=== PATIENT | female | born 1960 | race Caucasian/White ===

== ENCOUNTER → 2017-09-04 | Outpatient (CLI) | payer OTHER | END | disposition home or self-care (01) | LOC: EEG 10:04 | DX: G40.909 Epilepsy, unspecified, not intractable, without status epilepticus (principal) | CPT/HCPCS: 95819 ==

== ENCOUNTER 2018-12-23 07:18 | Inpatient (IN) | payer OTHER ==
[2018-12-23] MEDS: ACETAMINOPHEN 500 MG TAB PO (06:30)
[2018-12-23] MEDS: LACTATED RINGER'S 1,000 ML IV ×2 (06:30→14:30)
[2018-12-23] MEDS: CEFAZOLIN 1 GM/50 ML (PMX) 50 ML IVPB (06:30)
[2018-12-23] MEDS: ACETAMINOPHEN 1000MG/100ML IV 100 ML IVPB (08:01)
[2018-12-23] MEDS: LANSOPRAZOLE 30 MG CAP PO (08:02)
[2018-12-23] MEDS: DEXAMETHASONE 4 MG/ML 1 ML INJ IV (08:02)
[2018-12-23] MEDS: oxyCODONE (CR) 10 MG TAB [oxyCONTIN] PO (08:02)
[2018-12-23] MEDS: ONDANSETRON 4 MG INJ IV ×3 (08:02→18:23)
[2018-12-23] MEDS ORDERED: ONDANSETRON 4 MG INJ (08:38)
[2018-12-23] MEDS ORDERED: PROPOFOL 20 ML (08:38)
[2018-12-23] MEDS ORDERED: DEXAMETHASONE 4 MG/ML 5 ML INJ (08:38)
[2018-12-23] MEDS ORDERED: GLYCOPYRROLATE 0.4 MG INJ (08:38)
[2018-12-23] MEDS ORDERED: morphine SULFATE/PF (10 MG/10 ML) INJ (08:38)
[2018-12-23] MEDS ORDERED: ROCURONIUM 50 MG INJ (08:38)
[2018-12-23] MEDS ORDERED: NEOSTIGMINE 3 MG/3 ML SYRINGE (08:38)
[2018-12-23] MEDS ORDERED: CEFAZOLIN 1 GM INJ (08:38)
[2018-12-23] MEDS ORDERED: FENTAnyl 50 MCG/ML VIAL (08:38)
[2018-12-23] MEDS ORDERED: ROPIVACAINE 0.5 % 30 ML VIAL ×2 (08:38→12:43)
[2018-12-23] MEDS ORDERED: MIDAZOLAM 1 MG/ML 2 ML INJ (08:38)
[2018-12-23] MEDS: TRANEXAMIC ACID 1GM/100ML(PMX) 100 ML INTRA-OP X1 IVPB ×2 (10:43→11:51)
[2018-12-23] MEDS: BACITRACIN 50000 UNITS INJ (11:25)
[2018-12-23] MEDS: POLYMYXIN B 500000 UNIT INJ (11:25)
[2018-12-23] MEDS: ROPIVACAINE INJ (11:26)
[2018-12-23] MEDS: MORPHINE SULFATE INJ (11:26)
[2018-12-23] MEDS: CLONIDINE INJ (11:26)
[2018-12-23] MEDS: [UNRECOGNIZED DRUG - OTHER] INJ (11:26)
[2018-12-23] MEDS ORDERED: HYDROmorphONE 1 MG/5 ML IV SYRINGE IV ×3 (11:30)
[2018-12-23] MEDS ORDERED: OXYCODONE/ACETAMINOPHEN (5/325) TAB PO ×2 (11:30)
[2018-12-23] MEDS ORDERED: NALBUPHINE HCL (10 MG/1 ML) INJ IV (11:30)
[2018-12-23] MEDS ORDERED: MEPERIDINE 25 MG INJ IV (11:30)
[2018-12-23] MEDS ORDERED: hydrALAzine 20 MG INJ IV (11:30)
[2018-12-23] MEDS ORDERED: IPRATROPIUM (NEB) 0.5 MG/2.5 ML AMP HHN (11:30)
[2018-12-23] MEDS ORDERED: NALOXONE (0.4 MG/ML) INJ IV ×2 (11:30→12:30)
[2018-12-23] MEDS ORDERED: DIPHENHYDRAMINE 50 MG INJ IV ×2 (11:30)
[2018-12-23] MEDS ORDERED: HYDROmorphONE 0.5 MG/0.5 ML SYG IV (11:30)
[2018-12-23] MEDS ORDERED: ONDANSETRON 4 MG INJ IV ×2 (11:30)
[2018-12-23] MEDS ORDERED: ALBUTEROL 0.083% (NEB) 2.5 MG/3 ML AMP HHN (11:30)
[2018-12-23] MEDS ORDERED: EPHEDrine 25 MG/5 ML SYG IV (11:30)
[2018-12-23] MEDS ORDERED: MIDAZOLAM 1 MG/ML 2 ML INJ IV (11:30)
[2018-12-23] MEDS ORDERED: ZOLPIDEM 5 MG TAB PO (11:30)
[2018-12-23] MEDS ORDERED: LABETALOL HCL 20MG INJ IV (11:30)
[2018-12-23] MEDS ORDERED: FENTAnyl 50 MCG/ML VIAL IV ×3 (11:30)
[2018-12-23] MEDS ORDERED: TRIMETHOBENZAMIDE 100 MG/ML VIAL IM ×2 (11:30)
[2018-12-23] MEDS: TRANEXAMIC ACID 1GM/100ML(PMX) 100 ML PRE-OP X1 IVPB ×2 (11:52→12:19)
[2018-12-23] MEDS ORDERED: NACL 0.9% 3 ML SYG IV (12:30)
[2018-12-23] MEDS ORDERED: SENNA/DOCUSATE NA (8.6MG/50MG) TAB PO (12:30)
[2018-12-23] MEDS ORDERED: SUGAMMADEX SODIUM 200 MG/2 ML VIAL IV (12:35)
[2018-12-23] MEDS: GABAPENTIN 100 MG CAP PO ×2 (13:00→21:56)
[2018-12-23] MEDS: CEFAZOLIN 2 GM/50 ML (PMX) 50 ML IVPB ×2 (13:31→21:57)
[2018-12-23] MEDS: ASPIRIN 81 MG TAB PO (13:34)
[2018-12-23] MEDS ORDERED: LIDOCAINE 2% (SDV) 5 ML INJ IV (14:29)
[2018-12-23] MEDS ORDERED: LORAZEPAM 2 MG INJ IV (15:00)
[2018-12-23] MEDS: KETOROLAC 15 MG INJ IV (18:24)
[2018-12-23] MEDS: ATORVASTATIN 10 MG TAB PO (21:56)
[2018-12-23] MEDS: SERTRALINE 100 MG TAB PO (21:56)
[2018-12-23] MEDS: TOPIRAMATE 100 MG TAB PO (21:56)
[2018-12-23] MEDS: LEVETIRACETAM 500 MG TAB PO (21:56)
[2018-12-23] MEDS: LACOSAMIDE (100 MG/10 ML PO SYR) PO (21:57)
[2018-12-23] MEDS: oxyCODONE 5 MG TAB PO (22:12)
[2018-12-24] MEDS: ONDANSETRON 4 MG INJ IV ×2 (00:47→05:36)
[2018-12-24] MEDS: KETOROLAC 15 MG INJ IV ×3 (04:30→15:59)
[2018-12-24] MEDS: oxyCODONE 5 MG TAB PO ×4 (05:36→20:17)
[2018-12-24] MEDS: CEFAZOLIN 2 GM/50 ML (PMX) 50 ML IVPB (05:37)
[2018-12-24 05:49] LABS: ADD MAN DIFF? NO
[2018-12-24 06:05] LABS: BASOPHILS % 0.4 % (0.0-2.0); EOSINOPHILS # 0.1 10^3/ul (0.0-0.5); EOSINOPHILS % 0.9 % (0.0-7.0); HEMATOCRIT 35.9 % (37.0-47.0); HEMOGLOBIN 11.5 g/dl (12.0-16.0); LYMPHOCYTES # 2.2 10^3/ul (0.8-2.9); LYMPHOCYTES % 24.2 % (15.0-51.0); MEAN CORPUSCULAR HEMOGLOBIN 29.6 pg (29.0-33.0); MEAN CORPUSCULAR VOLUME 92.3 fl (82.0-101.0); MEAN PLATELET VOLUME 11.2 fl (7.4-10.4); MONOCYTE # 0.8 10^3/ul (0.3-0.9); MONOCYTES % 8.5 % (0.0-11.0); NEUTROPHIL # 5.9 10^3/ul (1.6-7.5); NEUTROPHILS % 65.4 % (39.0-77.0); PLATELET COUNT 150 10^3/UL (140-415); RED BLOOD COUNT 3.89 10^6/ul (4.20-5.40); RED CELL DISTRIBUTION WIDTH 12.8 % (11.5-14.5)
[2018-12-24 06:25] LABS: CHOLESTEROL 132 mg/dl (100-200)
[2018-12-24 06:25] LABS: CHOL/HDL RATIO 3.6 RATIO; HDL CHOLESTEROL 36 mg/dl (37-92); LDL CHOLESTEROL,CALCULATED 68 mg/dl; TRIGLYCERIDES 139 mg/dl (0-149)
[2018-12-24 06:28] LABS: ANION GAP 4 (5-13); BLOOD UREA NITROGEN 16 mg/dl (7-20); CALCIUM 8.6 mg/dl (8.4-10.2); CARBON DIOXIDE 27 mmol/L (21-31); CHLORIDE 110 mmol/L (97-110); CREATININE 0.78 mg/dl (0.44-1.00); Estimated GFR > 60 mL/min (>60); GLUCOSE 87 mg/dl (70-220); POTASSIUM 3.8 mmol/L (3.5-5.1); SODIUM 141 mmol/L (135-144)
[2018-12-24 06:41] LABS: HEMOGLOBIN A1C 5.5 % (0-5.9)
[2018-12-24] MEDS: TOPIRAMATE 100 MG TAB PO (08:38)
[2018-12-24] MEDS: CELECOXIB 100 MG CAP PO (08:38)
[2018-12-24] MEDS: LEVETIRACETAM 500 MG TAB PO (08:38)
[2018-12-24] MEDS: GABAPENTIN 100 MG CAP PO ×2 (08:38→13:26)
[2018-12-24] MEDS: HYDROmorphONE 0.5 MG/0.5 ML SYG IV (08:39)
[2018-12-24] MEDS: LACOSAMIDE (100 MG/10 ML PO SYR) PO (08:39)
[2018-12-24] MEDS ORDERED: LOSARTAN 50 MG TAB PO (09:00)
[2018-12-25] MEDS ORDERED: PANTOPRAZOLE (EC) 40 MG TAB PO (06:00)
== END 2018-12-24 20:20 | disposition home health service (06) | DRG 470 ==
LOC: REC 07:18 → MS1 13:44
PROC: 0SRC0J9 Replacement of Right Knee Joint with Synthetic Substitute, Cemented, Open Approach (ICD-10-PCS; principal; 2018-12-23 10:30)
DX: M17.11 Unilateral primary osteoarthritis, right knee (principal); Z68.41 Body mass index [BMI] 40.0-44.9, adult; E66.01 Morbid (severe) obesity due to excess calories; I10 Essential (primary) hypertension; E78.5 Hyperlipidemia, unspecified
CPT/HCPCS: 73560; 80048; 80061; 83036; 83735; 85025; 88304; 88311; 97110; 97116; 97161; 97530

== ENCOUNTER 2019-03-19 05:48 | Day surgery (SDC) | payer OTHER ==
[2019-03-19] MEDS: LACTATED RINGER'S 1,000 ML IV (07:57)
[2019-03-19] MEDS ORDERED: PROPOFOL 20 ML (07:59)
[2019-03-19] MEDS ORDERED: LIDOCAINE 2% (SDV) 5 ML INJ (07:59)
[2019-03-19] MEDS ORDERED: SUCCINYLCHOLINE CHLORIDE 100 MG/5 ML SYG IV (08:02)
[2019-03-19] MEDS ORDERED: FENTAnyl 50 MCG/ML VIAL (08:29)
[2019-03-19] MEDS ORDERED: DIPHENHYDRAMINE 50 MG INJ IV (08:30)
[2019-03-19] MEDS ORDERED: METOCLOPRAMIDE 10 MG INJ IV (08:30)
[2019-03-19] MEDS ORDERED: KETOROLAC 30 MG INJ IV (08:30)
[2019-03-19] MEDS ORDERED: HYDROCODONE/APAP (5/325) TAB PO (08:30)
[2019-03-19] MEDS ORDERED: FENTAnyl 50 MCG/ML VIAL IV ×2 (08:30)
[2019-03-19] MEDS ORDERED: MIDAZOLAM 1 MG/ML 2 ML INJ IV (08:30)
[2019-03-19] MEDS ORDERED: ONDANSETRON 4 MG INJ IV (08:30)
[2019-03-19] MEDS ORDERED: MEPERIDINE 25 MG INJ IV (08:30)
[2019-03-19] MEDS ORDERED: hydrALAzine 20 MG INJ IV (08:30)
[2019-03-19] MEDS ORDERED: LABETALOL HCL 20MG INJ IV (08:30)
[2019-03-19] MEDS ORDERED: OXYCODONE/ACETAMINOPHEN (5/325) TAB PO ×2 (08:30)
[2019-03-19] MEDS ORDERED: HYDROmorphONE 1 MG/5 ML IV SYRINGE IV ×2 (08:30)
[2019-03-19] MEDS ORDERED: EPHEDrine 25 MG/5 ML SYG IV (08:30)
[2019-03-19] MEDS: FENTAnyl 50 MCG/ML VIAL IV (08:50)
[2019-03-19] MEDS: HYDROmorphONE 1 MG/5 ML IV SYRINGE IV (08:55)
== END 2019-03-19 09:55 | disposition home or self-care (01) ==
LOC: SDS 05:48
DX: M24.661 Ankylosis, right knee (principal); I10 Essential (primary) hypertension; E78.5 Hyperlipidemia, unspecified; E66.9 Obesity, unspecified; F12.90 Cannabis use, unspecified, uncomplicated
CPT/HCPCS: 27570; 73560